=== PATIENT | male | born 1935 | race Caucasian/White ===

== ENCOUNTER 2021-08-08 09:40 | Emergency (ER) | payer MEDICARE, OTHER ==
[2021-08-08 10:38] LABS: Hemoglobin 12.5 g/dL (13.5-17.5); Mean Corpuscular HGB CONC 32.3 g/dL (32.0-36.0); Mean Corpuscular Hemoglobin 28.5 pg (27.0-33.0); Mean Corpuscular Volume 88.4 fl (81.2-95.1); Mean Platelet Volume 9.4 fl (7.4-10.4); Platelet Count 228 10x3/uL (150-450); RBC Distribution Width 16.1 % (11.5-14.5); Red Blood Cell (RBC) Count 4.38 10x6/uL (4.32-5.72); White Blood Cell (WBC) Count 7.7 10x3/uL (3.5-10.5)
[2021-08-08 10:39] LABS: MDiff Complete? YES
[2021-08-08] MEDS ORDERED: Dicyclomine 20 MG TAB ONE (10:41)
[2021-08-08 10:50] LABS: ALT (SGPT) 26 U/L (8-55); AST (SGOT) 35 U/L (5-34); Albumin 3.4 g/dL (3.4-4.8); Alkaline Phosphatase 92 U/L (40-110); Anion Gap 14 mmol/L (10-20); BUN (Urea Nitrogen) 26 mg/dL (8.4-25.7); Bilirubin, Total 0.6 mg/dL (0.2-1.2); Calc. Creatinine Clearance 0 mL/min (70-130); Calcium 8.7 mg/dL (7.8-10.44); Carbon Dioxide 28 mmol/L (23-31); Chloride 97 mmol/L (98-107); Globulin 2.9 g/dL (2.4-3.5); Glucose 167 mg/dL (83-110); Lipase 7 U/L (8-78); Magnesium 2.1 mg/dL (1.6-2.6); Protein, Total 6.3 g/dL (5.8-8.1); Sodium 135 mmol/L (136-145)
[2021-08-08 11:05] LABS: Band 25 % (5-11); Lymphocytes 13 % (21-51); Monocytes 13 % (0-10); Neutrophil 48 % (42-75)
[2021-08-08 11:07] LABS: Anisocytosis SLIGHT = 6-15 cells (100X) (0-5/hpf)
[2021-08-08 11:08] LABS: Hypochromia SLIGHT = 6-15 cells (100X) (0-5/hpf); Platelet Morphology Comment Appears Adequate; Toxic Granulation SLIGHT
[2021-08-08] MEDS ORDERED: Diphenoxylate HCl/Atropine Tablet ONE ×2 (11:23→11:24)
[2021-08-08] MEDS ORDERED: Amoxicillin/Potassium Clav 875 MG TAB ONE (12:59)
[2021-08-08 13:43] LABS: Bilirubin Neg (Negative); Blood, Urine 10 (Negative); Clarity Clear (Clear); Glucose, Urine (Dipstick) Normal (Negative); Ketone, Urine Negative (Negative); Leukocyte Negative (Negative); Nitrite Negative (Negative); Protein, Urine (Dipstick) 30 mg/dl (Neg-Trace); Specific Gravity, Urine 1.015 (1.002-1.036); Urobilinogen Normal mg/dL (Less than 2)
[2021-08-08 14:01] LABS: Bacteria/HPF None Seen HPF (None Seen); RBC/HPF 0-3 HPF (0-3); Squamous Epithelial 0-3 HPF (0-3); WBC/HPF None Seen HPF (0-3)
[2021-08-08] MEDS ORDERED: Iopamidol 300 61% 100 ML VIAL FS ONE (15:40)
== END 2021-08-08 12:55 | disposition home or self-care (01) ==
LOC: CSHERS 09:40
DX: K52.9 Noninfective gastroenteritis and colitis, unspecified (principal); I10 Essential (primary) hypertension; E11.9 Type 2 diabetes mellitus without complications
CPT/HCPCS: 74177; 80053; 81003; 81015; 83605; 83690; 83735; 84484; 85025; 93005; 94760; Q9967